=== PATIENT | male | born 1990 | race Two or more races ===

== ENCOUNTER → 2019-07-27 | Outpatient (CLI) | payer MEDICAID ==
--- NOTE | 2019-07-27 11:27 | US ---
EXAMINATION TYPE: US groin LT DATE OF EXAM: 07/27/2019 COMPARISON: NONE CLINICAL HISTORY: R59.0 Enlarged lymph nodes. TECHNIQUE/FINDINGS: Targeted grayscale imaging was performed of the left groin in the patient's area of concern. No evidence of enlarged lymph nodes are seen. Morphologically normal and nonenlarged lymp h nodes are seen measuring up to 0.6 x 0.2 x 0.5 cm containing a normal fatty hilum. IMPRESSION: Morphologically normal and nonenlarged left inguinal lymph nodes. No pathologic adenopat hy.
--- NOTE | 2019-07-27 11:28 | US ---
EXAMINATION TYPE: US groin RT DATE OF EXAM: 07/27/2019 COMPARISON: NONE CLINICAL HISTORY: R59.0 Enlarged lymph nodes. TECHNIQUE/FINDINGS: Targeted grayscale imaging was performed of the right groin in the patient's area of concern. No evidence of enlarged lymph nodes are seen. Morphologically normal and nonenlarged lym ph nodes are seen in the right groin measuring up to 0 0.7 x 0.3 x 0.6 cm containing a normal fatty h ilum. IMPRESSION: Morphologically normal and nonenlarged right inguinal lymph nodes. No pathologic adenopa thy.
== END ==
LOC: RADUSWWP 10:27
PROVIDERS: ATTEND Physician Assistant
DX: R59.0 Localized enlarged lymph nodes (principal)